=== PATIENT | female | born 1960 | race Caucasian/White ===

== ENCOUNTER 2017-10-30 16:05 | Emergency (ER) | payer MEDICAID ==
[~2017-10-30] VITALS: Ht 160 cm; Wt 70.0 kg
[2017-10-30] MEDS ORDERED: MECL-111 PO (16:12)
[2017-10-30] MEDS ORDERED: TOPI25 PO (16:12)
[2017-10-30] MEDS ORDERED: RANI150T7 PO (16:12)
[2017-10-30] MEDS ORDERED: [UNRECOGNIZED DRUG - CODE] PO (16:12)
[2017-10-30 16:53] LABS: HEMATOCRIT 34.1 % (36-46); HEMOGLOBIN 11.5 g/dL (12.0-16.0); MEAN CORPUSCULAR HEMOGLOBIN 30.6 pg (26.0-34.0); MEAN CORPUSCULAR HGB CONC 33.7 G/dL (31.0-37.0); MEAN CORPUSCULAR VOLUME 91 fL (80-100); PLATELET COUNT (AUTO) 428 K/uL (150-450); RED BLOOD CELL COUNT(AUTO) 3.76 MIL/uL (4.00-5.20); RED CELL DISTRIBUTION WIDTH 13.4 % (11.5-14.5)
[2017-10-30 17:07] LABS: ANION GAP 10 mmol/L (8-16); CARBON DIOXIDE 24 mmol/L (22-29); CHLORIDE 101 mmol/L (98-107); CREATININE 0.87 mg/dL (0.60-1.30); GLOMERULAR FILTR. RATE CALC > 60 mL/min (>60); GLUCOSE,RANDOM 147 mg/dL (70-110); SODIUM SERUM 135 mmol/L (136-145); UREA NITROGEN, BLOOD 15 mg/dL (7-18)
[2017-10-30 17:21] LABS: CALCIUM, TOTAL 11.7 mg/dL (8.8-10.5)
[2017-10-30 17:29] LABS: BAND NEUTROPHILS % (MANUAL) 1 % (1-5); BASOPHILS % (MANUAL) 1 % (0-2); EOSINOPHILS % (MANUAL) 3 % (1-6); LYMPHOCYTES % (MANUAL) 24 % (22-44); MONOCYTES % (MANUAL) 7 % (2-9); SEGMENTED NEUTROPHILS % 64 % (40-70)
[2017-10-30] MEDS ORDERED: SODIUM CHLORIDE 0.9% 1,000 ML IV ONE (18:45)
[2017-10-30 19:36] VITALS: BP 142/74
== END 2017-10-30 20:18 | disposition home or self-care (01) ==
LOC: EMS 16:07
DX: E83.52 Hypercalcemia (principal); R79.9 Abnormal finding of blood chemistry, unspecified
CPT/HCPCS: 36415; 80048; 85007; 85027; 99284; J7030